=== PATIENT | female | born 1995 | race American Indian/Alaskan Native ===

== ENCOUNTER 2022-11-12 18:29 | Emergency (ER) | payer SELFPAY ==
[2022-11-12] VITALS (8 sets, daily range): BP systolic 134–176; BP diastolic 73–99; PULSE 74–100; RESP 18–24; TEMP 36.6; O2SAT 98–99; BMI 29.2
[2022-11-12 18:56] LABS: Add Manual Diff / Slide Review NO; Basophils Absolute Auto 100 /uL (0-100); Basophils Percent Auto 0.7 % (0-2); Eosinophils Absolute Auto 100 /uL (0-450); Eosinophils Percent Auto 1.3 % (2-4); Hematocrit 39.2 % (36-46); Hemoglobin 13.5 g/dL (12.0-16.0); Lymphocytes Absolute Auto 1400 /uL (1100-4500); Lymphocytes Percent Auto 13.3 % (25-40); Mean Corpuscular HGB Conc 34.4 % (30-36); Mean Corpuscular Hemoglobin 29.8 PG (26-34); Mean Corpuscular Volume 86.8 fL (80-100); Monocytes Absolute Auto 500 /uL (0-900); Monocytes Percent Auto 5.2 % (3-14); Neutrophils Absolute Auto 8100 /uL (1500-7000); Neutrophils Percent Auto 79.5 % (50-75); Platelet Count 415 X10^3/uL (150-400); Red Blood Cell Count 4.52 X10^6/uL (4.0-5.2); Red Cell Distribution Width 12.6 % (11.6-14.8); White Blood Cell Count 10.3 X10^3/uL (4.5-11.0)
[2022-11-12] MEDS: SODIUM CHLORIDE 0.9% 1,000 ML 1000 ML IV (19:10)
[2022-11-12 19:24] LABS: Alanine Aminotransferase 17 IU/L (<35); Albumin 4.5 g/dL (3.5-5.0); Albumin Globulin Ratio 1.3 (1.0-2.8); Alkaline Phosphatase 83 U/L (38-126); Aspartate Aminotransferase 24 IU/L (14-36); BUN Creatinine Ratio 14.8 (6-22); Bilirubin Total 0.5 mg/dL (0.2-1.3); Blood Urea Nitrogen 8 mg/dL (7-17); Carbon Dioxide 24 mmol/L (22-32); Chloride 102 mmol/L (98-107); Estimated Glomerular Filt Rate > 60 mL/min (>60); Globulin 3.6 g/dL (1.7-4.1); Glucose 99 mg/dL (70-100); HEMOLYSIS < 15 (0-50); Lipase 83 U/L (23-300); Potassium 3.9 mmol/L (3.4-5.1); Sodium 137 mmol/L (137-145); Total Protein 8.1 g/dL (6.3-8.2)
--- NOTE | 2022-11-12 19:45 | ED.ABDPAIN ---
HPI - Abdominal Pain General Chief Complaint: Abdominal Pain Stated Complaint: abd pain t-7 Time Seen by Provider: 11/12/22 19:42 Source: patient Mode of arrival: Ambulatory History of Present Illness HPI narrative: Patient is a healthy 27-year-old female who presents today with abdominal cramping diarrhea ongoing for about 7 days. She says couple of days she had excessive amounts of nonbloody liquid stool. Now she reports that the amount of stool has low down however she continues to have frequency with small amounts of liquid stool. She has lower abdominal cramping she feels nauseous no significant vomiting. No real dizziness or lightheadedness. He denies any recent antibiotics no recent travel no camping, no one else is sick. She has already provided us with a stool sample. He is not taken anything for pain. Related Data Previous Rx's Medication Instructions Recorded benzonatate 100 mg capsule 100 mg PO BID PRN cough #20 caps 01/13/22 Allergies Allergy/AdvReac Type Severity Reaction Status Date / Time clindamycin Allergy Mild Hives Verified 01/13/22 18:51 Sulfa (Sulfonamide Allergy Mild Swelling Verified 01/13/22 18:51 Antibiotics) of Lip/Tongue/Throat Review of Systems Review of Systems ROS Unobtainable: All systems reviewed & are unremarkable except as noted in HPI and below Patient History Social History Smoking Status: Current some day smoker Smoking Status: Current some day smoker tobacco type: cigarettes and vaping alcohol intake frequency: a few times a week Substance Use Type: does not use Exam Initial Vital Signs Initial Vital Signs: Vital Signs Temperature 97.8 F 11/12/22 18:34 Pulse Rate 100 H 11/12/22 18:34 Respiratory Rate 18 11/12/22 18:34 Blood Pressure 176/99 H 11/12/22 18:34 Pulse Oximetry 99 11/12/22 18:34 Oxygen Delivery Method Room Air 11/12/22 18:34 GENERAL: Alert well-appearing 23-year-old female HEENT: Head atraumatic,EOMI, pupils reactive, moist mucous membrane CARDIOVASCULAR: Regular rate and rhythm without murmurs, rubs or gallops. RESPIRATORY: Breath sounds equal bilaterally, no wheezes rales or rhonchi. ABDOMEN: Soft, minimal lower abdominal pain no guarding no rebound no specific right lower quadrant tenderness EXTREMITIES: Normal range of motion, no clubbing or edema. Neurovascularly intact NEUROLOGICAL: Alert and oriented x4. SKIN: Warm, dry, no laceration, no petechiae, no rashes or lesions. Course Orders Ordered: ED Orders 11/12/22 18:40 Complete Blood Count AUTO DIFF Stat Comprehensive Metabolic Panel Stat Lipase Stat 11/12/22 19:09 GI Panel (Film Array) Stat Urine Culture Stat Urine Microscopic Stat Discontinued Medications Sodium Chloride (Normal Saline 0.9%) 1,000 mls @ 1,000 mls/hr IV BOLUS ONE Stop: 11/12/22 19:36 Last Infusion: 11/12/22 20:08 Dose: 0 mls/hr Documented By: Admin: 11/12/22 19:10 Dose: 1,000 mls/hr Documented By: JULITA Ketorolac Tromethamine (Ketorolac 30 Mg/Ml Vial) 15 mg IV NOW ONE Stop: 11/12/22 19:51 Last Admin: 11/12/22 20:05 Dose: 15 mg Documented By: JULITA Ondansetron HCl (Ondansetron 4 Mg Odt) 4 mg PO NOW PRN PRN Reason: Nausea And Vomiting Ondansetron HCl (Ondansetron 4 Mg/2 Ml Inj) 4 mg IV NOW PRN PRN Reason: Nausea And Vomiting Vital Signs Vital signs: Vital Signs - 8 hr 11/12/22 18:34 11/12/22 19:20 11/12/22 19:30 Temperature 97.8 F Pulse Rate 100 H 74 Respiratory Rate 18 19 Blood Pressure 176/99 H 134/90 Pulse Oximetry 99 99 Oxygen Delivery Method Room Air 11/12/22 19:30 11/12/22 20:00 11/12/22 20:00 Temperature Pulse Rate 74 74 Respiratory Rate 24 23 Blood Pressure 138/98 H Pulse Oximetry 99 99 Oxygen Delivery Method 11/12/22 20:30 11/12/22 20:30 11/12/22 21:00 Temperature Pulse Rate 79 Respiratory Rate 19 Blood Pressure 143/88 H 143/83 H Pulse Oximetry 98 Oxygen Delivery Method 11/12/22 21:00 11/12/22 21:30 11/12/22 21:31 Temperature Pulse Rate 82 78 Respiratory Rate 19 19 Blood Pressure 135/73 Pulse Oximetry 98 99 Oxygen Delivery Method 11/12/22 21:31 Temperature Pulse Rate 80 Respiratory Rate 19 Blood Pressure Pulse Oximetry 99 Oxygen Delivery Method MDM - Abdominal Pain Lab Data 11/12/22 18:40 11/12/22 18:40 Labs: Lab Results 11/12/22 11/12/22 11/12/22 Range/Units 18:40 18:40 19:09 WBC 10.3 (4.5-11.0) X10^3/uL RBC 4.52 (4.0-5.2) X10^6/uL Hgb 13.5 (12.0-16.0) g/dL Hct 39.2 (36-46) % MCV 86.8 (80-100) fL MCH 29.8 (26-34) PG MCHC 34.4 (30-36) % RDW 12.6 (11.6-14.8) % Plt Count 415 H (150-400) X10^3/uL Neut % (Auto) 79.5 H (50-75) % Lymph % (Auto) 13.3 L (25-40) % [place] % (Auto) 5.2 (3-14) % Eos % (Auto) 1.3 L (2-4) % Baso % (Auto) 0.7 (0-2) % Neut # (Auto) 8100 H (3207-6172) /uL Lymph # (Auto) 1400 (0966-3486) /uL [place] # (Auto) 500 (0-900) /uL Eos # (Auto) 100 (0-450) /uL Baso # (Auto) 100 (0-100) /uL Sodium 137 (137-145) mmol/L Potassium 3.9 (3.4-5.1) mmol/L Chloride 102 (98-107) mmol/L Carbon Dioxide 24 (22-32) mmol/L BUN 8 (7-17) mg/dL Creatinine 0.54 (0.52-1.04) mg/dL Estimated GFR > 60 (>60) mL/min BUN/Creatinine Ratio 14.8 (6-22) Glucose 99 (70-100) mg/dL Calcium 9.0 (8.4-10.2) mg/dL Total Bilirubin 0.5 (0.2-1.3) mg/dL AST 24 (14-36) IU/L ALT 17 (<35) IU/L Alkaline Phosphatase 83 (38-126) U/L Total Protein 8.1 (6.3-8.2) g/dL Albumin 4.5 (3.5-5.0) g/dL Globulin 3.6 (1.7-4.1) g/dL Albumin/Globulin Ratio 1.3 (1.0-2.8) Lipase 83 (23-300) U/L Urine RBC (0-5/HPF) Urine WBC (0-5/HPF) Ur Squamous Epith Cells (0-5/HPF) Ur Transition Epith Cell (0-5/HPF) Urine Bacteria (None) Ur Culture Indicated? Stl C. cayetanensis PCR Not detected (Not Detect) Stool Rotavirus (PCR) Not detected (Not Detect) Stool Adenovirus (PCR) Not detected (Not Detect) Stool Astrovirus (PCR) Not detected (Not Detect) Stool Cryptosporidium PCR Not detected (Not Detect) Stl E.coli Shiga Tox PCR Not detected (Not Detect) St Sh/Enteroin Ecoli PCR Not detected (Not Detect) Stool E coli O157 PCR Not Reportable Stl Enterotoxigenic E PCR Not detected (Not Detect) Stool EPEC (PCR) Not detected (Not Detect) Stl E. histolytica PCR Not detected (Not Detect) Stool Giardia Lamblia PCR Not detected (Not Detect) Stool Sapovirus (PCR) Not detected (Not Detect) Stl P. shigelloides PCR Not detected (Not Detect) St Y.enterocolitica PCR Not detected (Not Detect) Stool Vibrio (PCR) Not detected (Not Detect) Stl Vibrio cholerae PCR Not detected (Not Detect) Stl Enteroaggr Ecoli PCR Not detected (Not Detect) Stl Norovirus GI/GII PCR Not detected (Not Detect) Campylobacter (PCR) Not detected (Not Detect) C. difficile Tox (PCR) Not detected (Not Detect) Salmonella (PCR) Not detected (Not Detect) 11/12/22 Range/Units 19:09 WBC (4.5-11.0) X10^3/uL RBC (4.0-5.2) X10^6/uL Hgb (12.0-16.0) g/dL Hct (36-46) % MCV (80-100) fL MCH (26-34) PG MCHC (30-36) % RDW (11.6-14.8) % Plt Count (150-400) X10^3/uL Neut % (Auto) (50-75) % Lymph % (Auto) (25-40) % [place] % (Auto) (3-14) % Eos % (Auto) (2-4) % Baso % (Auto) (0-2) % Neut # (Auto) (1598-0025) /uL Lymph # (Auto) (5025-2091) /uL [place] # (Auto) (0-900) /uL Eos # (Auto) (0-450) /uL Baso # (Auto) (0-100) /uL Sodium (137-145) mmol/L Potassium (3.4-5.1) mmol/L Chloride (98-107) mmol/L Carbon Dioxide (22-32) mmol/L BUN (7-17) mg/dL Creatinine (0.52-1.04) mg/dL Estimated GFR (>60) mL/min BUN/Creatinine Ratio (6-22) Glucose (70-100) mg/dL Calcium (8.4-10.2) mg/dL Total Bilirubin (0.2-1.3) mg/dL AST (14-36) IU/L ALT (<35) IU/L Alkaline Phosphatase (38-126) U/L Total Protein (6.3-8.2) g/dL Albumin (3.5-5.0) g/dL Globulin (1.7-4.1) g/dL Albumin/Globulin Ratio (1.0-2.8) Lipase (23-300) U/L Urine RBC 1-5/hpf (0-5/HPF) Urine WBC 5-10/hpf H (0-5/HPF) Ur Squamous Epith Cells 1-5 /hpf (0-5/HPF) Ur Transition Epith Cell 1-5/hpf (0-5/HPF) Urine Bacteria Few (2-10) H (None) Ur Culture Indicated? Specimen cultured Stl C. cayetanensis PCR (Not Detect) Stool Rotavirus (PCR) (Not Detect) Stool Adenovirus (PCR) (Not Detect) Stool Astrovirus (PCR) (Not Detect) Stool Cryptosporidium PCR (Not Detect) Stl E.coli Shiga Tox PCR (Not Detect) St Sh/Enteroin Ecoli PCR (Not Detect) Stool E coli O157 PCR Stl Enterotoxigenic E PCR (Not Detect) Stool EPEC (PCR) (Not Detect) Stl E. histolytica PCR (Not Detect) Stool Giardia Lamblia PCR (Not Detect) Stool Sapovirus (PCR) (Not Detect) Stl P. shigelloides PCR (Not Detect) St Y.enterocolitica PCR (Not Detect) Stool Vibrio (PCR) (Not Detect) Stl Vibrio cholerae PCR (Not Detect) Stl Enteroaggr Ecoli PCR (Not Detect) Stl Norovirus GI/GII PCR (Not Detect) Campylobacter (PCR) (Not Detect) C. difficile Tox (PCR) (Not Detect) Salmonella (PCR) (Not Detect) Point of care testing: Point of Care Testing Test Results Negative Urine Dip Bedside Urine Glucose Negative Bedside Urine Bilirubin - Negative Bedside Urine Ketone - Negative Urine Specific [place] 1.015 Bedside Urine Occult Blood + Bedside Urine pH 5.5 Bedside Urine Protein - Negative Bedside Urine Urobilinogen - Negative Bedside Urine Nitrite - Negative Bedside Urine Leukocytes - Negative Esterase MDM Narrative Medical decision making narrative: Patient 27-year-old female presenting today with about 7 days of diarrhea. She has had multiple episodes with small amounts today and pre intense cramping. She is feeling better after fluids and Toradol. Blood work has been reviewed overall reassuring no evidence of dehydration or electrolyte abnormality, no leukocytosis or anemia and her GI panel does not show any detectable disease. This is likely another viral illness. At this time no need for antibiotics or other treatment. Encourage her supportive care pain meds fluids and Imodium if needed. Urinalysis does show few bacteria at this time recommend waiting for culture. Discharge Plan Departure Patient Disposition: Home Clinical Impression: Gastroenteritis Instructions: DI for Viral Gastroenteritis -- Adult Activity Restrictions/Additional Instructions: *You have been diagnosed with gastroenteritis *What to do: At this time stay hydrated recommend Gatorade or Gatorade like product such as Pedialyte. May eat and advance diet as tolerated. At this time no real need for antibiotics *Continue to take medications as directed Motrin 600 mg every 6 hours if needed for [id number] pain Tylenol 1000 mg every 6 hours if needed for ohqf-[id number] pain May try [id number] Imodium *Follow up with your primary care provider in 2-3 days or call [phone] *Return to ER if you should have increasing pain persistent diarrhea vomiting not tolerating fluids or any new, worsening or concerning symptoms Prescriptions: No Action benzonatate 100 mg capsule 100 mg PO BID PRN (Reason: cough) Qty: 20 0RF Referrals: Miscellaneous,Doctor, MD [Primary Care Provider] - Stand Alone Forms: Patient Portal/API, Work Release Note
[2022-11-12 19:58] LABS: Bacteria Urine Few (2-10); RBC Urine 1-5/HPF (0-5/HPF); Squamous Epithelial Cell Urine 1-5 /HPF (0-5/HPF); Transitional Epi Cells Urine 1-5/HPF (0-5/HPF); WBC Urine 5-10/HPF (0-5/HPF)
[2022-11-12 19:59] LABS: Culture Indicated Urine Specimen Cultured
[2022-11-12] MEDS: KETOROLAC 30 MG/ML VIAL 15 MG IV (20:05)
[2022-11-12 21:27] LABS: Adenovirus F 40/41 Not Detected (Not Detect); Astrovirus Not Detected (Not Detect); Campylobacter Not Detected (Not Detect); Clostridium difficile toxin AB Not Detected (Not Detect); Cryptosporidium Not Detected (Not Detect); Cyclospora cayetanensis Not Detected (Not Detect); Entamoeba histolytica Not Detected (Not Detect); Enteroaggregative E.coli Not Detected (Not Detect); Enteropathogenic E.coli Not Detected (Not Detect); Enterotoxigenic E.coli It/st Not Detected (Not Detect); Giardia lamblia Not Detected (Not Detect); Norovirus GI/GII Not Detected (Not Detect); Plesiomonsa shigelloides Not Detected (Not Detect); Rotavirus A Not Detected (Not Detect); Salmonella Not Detected (Not Detect); Sapovirus Not Detected (Not Detect); Shiga-like toxin-prod E.coli Not Detected (Not Detect); Shigella/Enteroinvasive E.coli Not Detected (Not Detect); Vibrio Not Detected (Not Detect); Vibrio cholerae Not Detected (Not Detect); Yersinia enterocolitica Not Detected (Not Detect)
== END 2022-11-12 21:54 | disposition home or self-care (01) ==
PROVIDERS: Emergency Provider Emergency Medicine
DX: K52.9 Noninfective gastroenteritis and colitis, unspecified (principal)
CPT/HCPCS: 36415; 80053; 81003; 81015; 81025; 83690; 85025; 87086; 87507; 96361; 96374; 99284; J1885

== ENCOUNTER 2022-11-23 16:07 | Emergency (ER) | payer SELFPAY ==
[2022-11-23 16:30] VITALS: BP 129/63; RESP 16; TEMP 37; O2SAT 99; BMI 29.2
--- NOTE | 2022-11-23 17:08 | DI.US.S_ITS ---
PROCEDURE: US ABDOMEN LIMITED INDICATIONS: RIGHT UPPER QUADRANT PAIN. DIARRHEA. TECHNIQUE: Real-time focused scanning was performed of the abdomen, with image documentation. COMPARISON: None. FINDINGS: The liver is normal in size and demonstrates no suspicious lesions. The patient is not NPO for this study. The gallbladder is contracted, which limits its evaluation. No findings of gallstones or sludge are seen. The gallbladder wall is not thickened, measuring 3 mm or less. No specific pericholecystic fluid is seen. The sonographic Deluna sign is negative. There is no biliary dilatation, the common bile duct measures 5-6 mm. No significant pancreatic abnormality is seen on these images. IMPRESSION: Limited evaluation of the gallbladder, yet without findings of acute cholecystitis. No biliary dilatation. Dictated by: Ruddy Ratliff M.D. on 11/23/2022 at 17:21 Approved by: Ruddy Ratliff M.D. on 11/23/2022 at 17:22
--- NOTE | 2022-11-23 17:08 | ED.GENADULT ---
HPI - General Adult <Caden Meyer DO - Last Filed: 11/23/22 18:13> General Chief complaint: Abdominal Pain Stated complaint: stomach pain t-3weeks Time Seen by Provider: 11/23/22 16:42 Source: patient Mode of arrival: Ambulatory History of Present Illness HPI narrative: Patient is a 27-year-old female. No prior history of abdominal surgeries. Was seen here in the emergency department recently for diarrhea and abdominal pain. Had a workup with labs and stool studies and subsequently discharged home. No imaging studies were done. States she continues to have diarrhea. She states that the discomfort that she was having in her lower abdomen has greatly improved but now she has discomfort in her upper abdomen. It does get worse with eating. No vomiting. No fevers. She does have some back pain on the right side as well. She states that it does hurt when she takes a deep breath. Related Data Previous Rx's Medication Instructions Recorded benzonatate 100 mg capsule 100 mg PO BID PRN cough #20 caps 01/13/22 Allergies Allergy/AdvReac Type Severity Reaction Status Date / Time clindamycin Allergy Mild Hives Verified 01/13/22 18:51 Sulfa (Sulfonamide Allergy Mild Swelling Verified 01/13/22 18:51 Antibiotics) of Lip/Tongue/Throat Review of Systems <DO Molina Dover Last Filed: 11/23/22 18:13> Constitutional Constitutional: Reports system reviewed and no additional complaints, except as documented Gastrointestinal Gastrointestinal: Reports system reviewed and no additional complaints, except as documented Genitourinary Genitourinary: Reports system reviewed and no additional complaints, except as documented Integumentary/Breasts Skin/Breast: Reports system reviewed and no additional complaints, except as documented Hematologic/Lymphatic On Anticoagulants: No Patient History <DO Molina Dover Last Filed: 11/23/22 18:13> Social History Smoking Status: Current some day smoker Smoking Status: Current some day smoker tobacco type: cigarettes and vaping alcohol intake frequency: a few times a week Substance Use Type: does not use Exam <DO Molina Dover Last Filed: 11/23/22 18:13> Initial Vital Signs Initial Vital Signs: Vital Signs Temperature 98.6 F 11/23/22 16:30 Respiratory Rate 16 11/23/22 16:30 Blood Pressure 129/63 11/23/22 16:30 Pulse Oximetry 99 11/23/22 16:30 Oxygen Delivery Method Room Air 11/23/22 16:30 HENMT Head: normal to inspection and normocephalic Resp Effort & Inspection: normal respiratory effort Cardio Rate: regular rate GI Other: Patient does have right upper quadrant pain with a positive Deluna's sign. Back/Spine/Pelvis Other: Right CVA tenderness Neuro General: patient alert, patient awake and moves all extremities <Iva Zaragoza MD - Last Filed: 11/23/22 21:01> Initial Vital Signs Initial Vital Signs: Vital Signs Temperature 98.6 F 11/23/22 16:30 Respiratory Rate 16 11/23/22 16:30 Blood Pressure 129/63 11/23/22 16:30 Pulse Oximetry 99 11/23/22 16:30 Oxygen Delivery Method Room Air 11/23/22 16:30 Course <Caden Meyer DO - Last Filed: 11/23/22 18:13> Orders Ordered: ED Orders 11/23/22 16:49 Urine Microscopic Stat 11/23/22 17:08 US abdomen limited Stat 11/23/22 17:20 Complete Blood Count AUTO DIFF Stat Comprehensive Metabolic Panel Stat Lipase Stat 11/23/22 19:17 XR acute abdomen series Stat Vital Signs Vital signs: Vital Signs - 8 hr 11/23/22 16:30 11/23/22 19:21 Temperature 98.6 F Pulse Rate 86 Respiratory Rate 16 18 Blood Pressure 129/63 112/65 Pulse Oximetry 99 99 Oxygen Delivery Method Room Air Room Air <Iva Zaragoza MD - Last Filed: 11/23/22 21:01> Orders Ordered: ED Orders 11/23/22 16:49 Urine Microscopic Stat 11/23/22 17:08 US abdomen limited Stat 11/23/22 17:20 Complete Blood Count AUTO DIFF Stat Comprehensive Metabolic Panel Stat Lipase Stat 11/23/22 19:17 XR acute abdomen series Stat Vital Signs Vital signs: Vital Signs - 8 hr 11/23/22 16:30 11/23/22 19:21 Temperature 98.6 F Pulse Rate 86 Respiratory Rate 16 18 Blood Pressure 129/63 112/65 Pulse Oximetry 99 99 Oxygen Delivery Method Room Air Room Air Medical Decision Making <DO Molina Dover Last Filed: 11/23/22 18:13> Medical Records Medical records reviewed: Yes I reviewed the patient's medical records. Lab Data Lab results reviewed: Yes I reviewed the patient's lab results. 11/23/22 17:20 11/23/22 17:20 Labs: Lab Results 11/23/22 11/23/22 11/23/22 Range/Units 16:49 17:20 17:20 WBC 10.1 (4.5-11.0) X10^3/uL RBC 4.17 (4.0-5.2) X10^6/uL Hgb 12.3 (12.0-16.0) g/dL Hct 35.8 L (36-46) % MCV 85.7 (80-100) fL MCH 29.6 (26-34) PG MCHC 34.5 (30-36) % RDW 12.2 (11.6-14.8) % Plt Count 450 H (150-400) X10^3/uL Neut % (Auto) 78.2 H (50-75) % Lymph % (Auto) 12.7 L (25-40) % [place] % (Auto) 6.4 (3-14) % Eos % (Auto) 2.0 (2-4) % Baso % (Auto) 0.7 (0-2) % Neut # (Auto) 7900 H (1985-3006) /uL Lymph # (Auto) 1300 (4519-3956) /uL [place] # (Auto) 700 (0-900) /uL Eos # (Auto) 200 (0-450) /uL Baso # (Auto) 100 (0-100) /uL Sodium 137 (137-145) mmol/L Potassium 3.5 (3.4-5.1) mmol/L Chloride 101 (98-107) mmol/L Carbon Dioxide 28 (22-32) mmol/L BUN 7 (7-17) mg/dL Creatinine 0.56 (0.52-1.04) mg/dL Estimated GFR > 60 (>60) mL/min BUN/Creatinine Ratio 12.5 (6-22) Glucose 77 (70-100) mg/dL Calcium 9.4 (8.4-10.2) mg/dL Total Bilirubin 0.7 (0.2-1.3) mg/dL AST 20 (14-36) IU/L ALT 15 (<35) IU/L Alkaline Phosphatase 97 (38-126) U/L Total Protein 8.2 (6.3-8.2) g/dL Albumin 4.1 (3.5-5.0) g/dL Globulin 4.1 (1.7-4.1) g/dL Albumin/Globulin Ratio 1.0 (1.0-2.8) Lipase 59 (23-300) U/L Urine RBC 1-5/hpf (0-5/HPF) Urine WBC 1-5/hpf (0-5/HPF) Ur Squamous Epith Cells None seen (0-5/HPF) Urine Bacteria None seen (None) Urine Mucus 1+ H (Negative) Ur Culture Indicated? Cult not indicated Point of Care Testing Test Results Negative Urine Dip Bedside Urine Glucose Negative Bedside Urine Bilirubin - Negative Bedside Urine Ketone - Negative Bedside Urine Occult Blood +/- Bedside Urine Protein - Negative Bedside Urine Urobilinogen - Negative Bedside Urine Nitrite - Negative Bedside Urine Leukocytes - Negative Esterase Point of care testing: Point of Care Testing Test Results Negative Urine Dip Bedside Urine Glucose Negative Bedside Urine Bilirubin - Negative Bedside Urine Ketone - Negative Bedside Urine Occult Blood +/- Bedside Urine Protein - Negative Bedside Urine Urobilinogen - Negative Bedside Urine Nitrite - Negative Bedside Urine Leukocytes - Negative Esterase MDM Narrative Medical decision making narrative: Patient is continuing to have diarrhea. She is right upper quadrant pain with a positive Deluna's sign that gets worse after eating. Her LFTs are unremarkable. Right upper quadrant ultrasound ordered. Care turned over to Dr. Zaragoza to follow-up and disposition. <Iva Zaragoza MD - Last Filed: 11/23/22 21:01> Lab Data Labs: Lab Results 11/23/22 11/23/22 11/23/22 Range/Units 16:49 17:20 17:20 WBC 10.1 (4.5-11.0) X10^3/uL RBC 4.17 (4.0-5.2) X10^6/uL Hgb 12.3 (12.0-16.0) g/dL Hct 35.8 L (36-46) % MCV 85.7 (80-100) fL MCH 29.6 (26-34) PG MCHC 34.5 (30-36) % RDW 12.2 (11.6-14.8) % Plt Count 450 H (150-400) X10^3/uL Neut % (Auto) 78.2 H (50-75) % Lymph % (Auto) 12.7 L (25-40) % [place] % (Auto) 6.4 (3-14) % Eos % (Auto) 2.0 (2-4) % Baso % (Auto) 0.7 (0-2) % Neut # (Auto) 7900 H (4732-0498) /uL Lymph # (Auto) 1300 (5917-4028) /uL [place] # (Auto) 700 (0-900) /uL Eos # (Auto) 200 (0-450) /uL Baso # (Auto) 100 (0-100) /uL Sodium 137 (137-145) mmol/L Potassium 3.5 (3.4-5.1) mmol/L Chloride 101 (98-107) mmol/L Carbon Dioxide 28 (22-32) mmol/L BUN 7 (7-17) mg/dL Creatinine 0.56 (0.52-1.04) mg/dL Estimated GFR > 60 (>60) mL/min BUN/Creatinine Ratio 12.5 (6-22) Glucose 77 (70-100) mg/dL Calcium 9.4 (8.4-10.2) mg/dL Total Bilirubin 0.7 (0.2-1.3) mg/dL AST 20 (14-36) IU/L ALT 15 (<35) IU/L Alkaline Phosphatase 97 (38-126) U/L Total Protein 8.2 (6.3-8.2) g/dL Albumin 4.1 (3.5-5.0) g/dL Globulin 4.1 (1.7-4.1) g/dL Albumin/Globulin Ratio 1.0 (1.0-2.8) Lipase 59 (23-300) U/L Urine RBC 1-5/hpf (0-5/HPF) Urine WBC 1-5/hpf (0-5/HPF) Ur Squamous Epith Cells None seen (0-5/HPF) Urine Bacteria None seen (None) Urine Mucus 1+ H (Negative) Ur Culture Indicated? Cult not indicated Point of Care Testing Test Results Negative Urine Dip Bedside Urine Glucose Negative Bedside Urine Bilirubin - Negative Bedside Urine Ketone - Negative Bedside Urine Occult Blood +/- Bedside Urine Protein - Negative Bedside Urine Urobilinogen - Negative Bedside Urine Nitrite - Negative Bedside Urine Leukocytes - Negative Esterase Point of care testing: Point of Care Testing Test Results Negative Urine Dip Bedside Urine Glucose Negative Bedside Urine Bilirubin - Negative Bedside Urine Ketone - Negative Bedside Urine Occult Blood +/- Bedside Urine Protein - Negative Bedside Urine Urobilinogen - Negative Bedside Urine Nitrite - Negative Bedside Urine Leukocytes - Negative Esterase MDM Narrative Medical decision making narrative: Patient is continuing to have diarrhea. She is right upper quadrant pain with a positive Deluna's sign that gets worse after eating. Her LFTs are unremarkable. Right upper quadrant ultrasound ordered. Care turned over to Dr. Zaragoza to follow-up and disposition. Care is assumed, patient is independently examined chart is reviewed: CC: Abdominal pain, sounds relatively intense however migratory. When examined by Dr. Meyer she had right upper quadrant tenderness on my exam she describes diffuse pain and points to areas that outlined her: Data collected from: patient, Differential considered: Constipation, colitis, gallstones, pancreatitis, with no pelvic or urinary complaints I doubt pelvic inflammatory disease or ovarian pathology Exam documented above, pertinent findings include: Mild diffuse tenderness of the entire abdomen without rebound or guarding Lab Test results independently reviewed as above. Pertinent findings: CBC is completely unremarkable Chemistries are unremarkable Lipase is normal Imaging studies independently reviewed: Ultrasound does not show any significant pathology X-rays of the chest are unremarkable. X-rays of the abdomen suggest moderate stool loading without any free air other issues Re-evaluations: Findings were shared with patient. She notes that she has used magnesium citrate in the past for similar findings. She is tried MiraLax in the past but it has not worked. We talked about using MiraLax daily to prevent problems in the 1st place and if she has not had a bowel movement during the day than taking an extra dose of MiraLax at night. At this point there is no evidence for severe intra-abdominal infection, acute surgical abdomen, need for additional imaging studies or hospitalization. She is given magnesium citrate to use when she gets home and she is safe for discharge Discharge Plan Departure Patient Disposition: Home Clinical Impression: Abdominal pain Qualifiers: Abdominal location: generalized Qualified Code(s): R10.84 - Generalized abdominal pain Constipation Qualifiers: Constipation type: unspecified constipation type Qualified Code(s): K59.00 - Constipation, unspecified Instructions: DI for Constipation Activity Restrictions/Additional Instructions: Thank you for coming in today Your blood work is quite reassuring. There is no evidence of infection. No evidence of any gallbladder abnormality The x-rays do suggest that you got quite a bit of stool in your colon which is consistent with the way that the pain changes in location in your abdomen. I sent you home with a bottle of magnesium citrate, please drink the entire thing tonight and expect to have quite a bit of stool come out. To prevent this from happening again, using MiraLax daily and if you have not had a bowel movement that day an extra dose before bedtime will help. Focusing on plenty of water and lots of fiber rich foods and green leafy vegetables will also help prevent constipation If you find that you are getting worse or develop any new symptoms, please feel free to return to the emergency department for further evaluation. Prescriptions: No Action benzonatate 100 mg capsule 100 mg PO BID PRN (Reason: cough) Qty: 20 0RF Referrals: Miscellaneous,Doctor, MD [Primary Care Provider] - Stand Alone Forms: Patient Portal/API, Work Release Note
[2022-11-23 17:16] LABS: Bacteria Urine None Seen; Culture Indicated Urine Cult Not Indicated; Mucus Urine 1+ (Negative); RBC Urine 1-5/HPF (0-5/HPF); Squamous Epithelial Cell Urine None Seen (0-5/HPF); WBC Urine 1-5/HPF (0-5/HPF)
[2022-11-23 17:30] LABS: Add Manual Diff / Slide Review NO; Basophils Absolute Auto 100 /uL (0-100); Basophils Percent Auto 0.7 % (0-2); Eosinophils Absolute Auto 200 /uL (0-450); Hematocrit 35.8 % (36-46); Hemoglobin 12.3 g/dL (12.0-16.0); Lymphocytes Absolute Auto 1300 /uL (1100-4500); Lymphocytes Percent Auto 12.7 % (25-40); Mean Corpuscular HGB Conc 34.5 % (30-36); Mean Corpuscular Hemoglobin 29.6 PG (26-34); Mean Corpuscular Volume 85.7 fL (80-100); Monocytes Absolute Auto 700 /uL (0-900); Monocytes Percent Auto 6.4 % (3-14); Neutrophils Absolute Auto 7900 /uL (1500-7000); Neutrophils Percent Auto 78.2 % (50-75); Platelet Count 450 X10^3/uL (150-400); Red Blood Cell Count 4.17 X10^6/uL (4.0-5.2); Red Cell Distribution Width 12.2 % (11.6-14.8); White Blood Cell Count 10.1 X10^3/uL (4.5-11.0)
[2022-11-23 17:39] LABS: Alanine Aminotransferase 15 IU/L (<35); Albumin 4.1 g/dL (3.5-5.0); Alkaline Phosphatase 97 U/L (38-126); Aspartate Aminotransferase 20 IU/L (14-36); BUN Creatinine Ratio 12.5 (6-22); Bilirubin Total 0.7 mg/dL (0.2-1.3); Blood Urea Nitrogen 7 mg/dL (7-17); Calcium 9.4 mg/dL (8.4-10.2); Carbon Dioxide 28 mmol/L (22-32); Chloride 101 mmol/L (98-107); Estimated Glomerular Filt Rate > 60 mL/min (>60); Globulin 4.1 g/dL (1.7-4.1); Glucose 77 mg/dL (70-100); HEMOLYSIS < 15 (0-50); Lipase 59 U/L (23-300); Potassium 3.5 mmol/L (3.4-5.1); Sodium 137 mmol/L (137-145); Total Protein 8.2 g/dL (6.3-8.2)
--- NOTE | 2022-11-23 19:17 | DI.RAD.S_ITS ---
PROCEDURE: XR ACUTE ABDOMEN SERIES INDICATIONS: Migratory abdominal pain; right post lung field pain TECHNIQUE: One view chest and two views of the abdomen were acquired. COMPARISON: [facility], CT, CT PELVIS WITH CONTRAST, 03/10/2021, 19:38. [facility], US, US PELVIC COMPLETE WITH TRANSVAGINAL, 06/21/2021, 15:26. [facility], US, US ABDOMEN LIMITED, 11/23/2022, 17:51. FINDINGS: Surgical changes and devices: None. Chest: Lungs are clear. Heart size is normal. No pleural effusions. No pneumoperitoneum. Abdomen: Bowel gas pattern is normal. There is a moderate volume of stool seen within the colon. No suspicious calcifications. Visualized solid organ contours appear normal. Bones: No suspicious bony lesions. IMPRESSION: No acute cardiopulmonary process is seen. There is a moderate amount of stool seen within the colon. Please correlate with an underlying history of constipation. Dictated by: Ruddy Ratliff M.D. on 11/23/2022 at 19:05 Approved by: Ruddy Ratliff M.D. on 11/23/2022 at 19:06
[2022-11-23 19:21] VITALS: BP 112/65; PULSE 86; RESP 18; O2SAT 99
[2022-11-23] MEDS: MAGNESIUM CITRATE 300 ML SOLUTION PO (21:13)
[2022-11-23 21:15] VITALS: BP 114/77; PULSE 85; RESP 16; O2SAT 100
== END 2022-11-23 21:19 | disposition home or self-care (01) ==
PROVIDERS: Emergency Medicine; Emergency Provider Emergency Medicine
DX: R10.84 Generalized abdominal pain (principal); K59.00 Constipation, unspecified
CPT/HCPCS: 36415; 74022; 76705; 80053; 81003; 81015; 81025; 83690; 85025; 99284

== ENCOUNTER 2024-12-14 22:02 | Emergency (ER) | payer SELFPAY ==
[2024-12-14 22:13] VITALS: BP 147/92; PULSE 107; RESP 16; TEMP 36.3; O2SAT 96; BMI 31.2
[2024-12-14] MEDS: ONDANSETRON 4 MG/2 ML INJ IV (22:27)
[2024-12-14 22:41] LABS: Add Manual Diff / Slide Review NO; Hematocrit 39.9 % (36-46); Hemoglobin 13.8 g/dL (12.0-16.0); Lymphocytes Absolute Auto 1900 /uL (1100-4500); Mean Corpuscular HGB Conc 34.5 % (30-36); Mean Corpuscular Hemoglobin 30.8 PG (26-34); Mean Corpuscular Volume 89.3 fL (80-100); Platelet Count 428 X10^3/uL (150-400)
[2024-12-14 22:51] LABS: Alanine Aminotransferase 21 IU/L (<35); Albumin 4.7 g/dL (3.5-5.0); Albumin Globulin Ratio 1.2 (1.0-2.8); Alkaline Phosphatase 94 U/L (38-126); Blood Urea Nitrogen 8 mg/dL (7-17); Calcium 9.8 mg/dL (8.4-10.2); Carbon Dioxide 25 mmol/L (22-32); Chloride 102 mmol/L (98-107); Estimated Glomerular Filt Rate > 60 mL/min (>60); Globulin 3.8 g/dL (1.7-4.1); Glucose 109 mg/dL (70-99); HEMOLYSIS < 15 (0-50); Lipase 137 U/L (23-300); Potassium 4.4 mmol/L (3.4-5.1); Sodium 138 mmol/L (137-145); Total Protein 8.5 g/dL (6.3-8.2)
[2024-12-14 23:13] LABS: Appearance Urine UA SL CLOUDY; Bilirubin Urine UA NEGATIVE (NEGATIVE); Color Urine UA YELLOW; Glucose Urine UA NEGATIVE (Negative); Ketones Urine UA NEGATIVE (NEGATIVE); Leukocyte Esterase Urine UA NEGATIVE (NEGATIVE); Nitrite Urine UA NEGATIVE (Negative); Occult Blood Urine UA NEGATIVE (Negative); Protein Urine UA NEGATIVE (Negative); Specific Gravity Urine UA 1.015 (1.000-1.035); Urobilinogen Urine UA 0.2 E.U./dL (0.2)
[2024-12-14 23:16] LABS: pH Urine UA 8.5 (4.5-8.0)
[2024-12-14 23:27] LABS: Culture Indicated Urine Cult Not Indicated
== END 2024-12-15 00:54 | disposition left against medical advice (07) ==
PROVIDERS: Emergency Provider Emergency Medicine
DX: R10.13 Epigastric pain (principal); R11.2 Nausea with vomiting, unspecified
CPT/HCPCS: 36415; 80053; 81001; 81025; 83690; 85025; 96374; 99284; J2405